=== PATIENT | female | born 1960 | race Caucasian/White ===

== ENCOUNTER 2020-08-12 22:40 | Emergency (ER) | payer OTHER, SELFPAY ==
--- NOTE | 2020-08-12 23:04 | ED.HEATRA ---
HPI - Head Injury General Chief complaint: Wound/Laceration Stated complaint: head injury Time Seen by Provider: 08/12/20 23:25 Source: patient Mode of arrival: ambulatory Limitations: no limitations History of Present Illness HPI Narrative: 60-year-old woman comes in today complaining of a laceration on her occipital scalp that occurred after slipping on the ice yesterday afternoon. Patient states she also injured her left elbow and left hip. She has full range of motion of both. She has had intermittent headache and pain at the wound site but no vomiting, visual changes, difficulty walking, or confusion. Patient denies alcohol or drug use around the time of the injury. She does not recall her last tetanus shot. Complaint: head injury Onset (ago): hour(s) (30) Mechanism of Injury: fall Place: outdoors Loss of Consciousness: unsure Location of injury: occipital Severity: moderate Quality: sharp Radiation: none Other Injuries: upper extremity and lower extremity Associated symptoms: denies other symptoms Related Data Home Medications Medication Instructions Recorded Confirmed amlodipine 10 mg PO DAILY 08/12/20 08/12/20 atenolol 50 mg PO DAILY 08/12/20 08/12/20 ropinirole 20 mg PO BID 08/12/20 08/12/20 rosuvastatin 20 mg PO DAILY 08/12/20 08/12/20 Allergies Allergy/AdvReac Type Severity Reaction Status Date / Time No Known Allergies Allergy Verified 08/12/20 23:25 Review of Systems Eyes: Eyes: Denies change in vision and Denies photophobia ENT: Denies dysphagia Cardiovascular: Cardiovascular: Denies chest pain and Denies radiating jaw, neck or arm pain Respiratory: Respiratory: Denies cough and Denies dyspnea Gastrointestinal: Gastrointestinal: Denies abdominal pain, Denies nausea and Denies vomiting Genitourinary: Genitourinary: Denies hematuria, Denies nocturia and Denies dysuria Musculoskeletal: Musculoskeletal: Denies back pain, Denies arthralgias and Denies joint swelling Integumentary/Breasts: Skin/Breast: Denies pruritus, Denies erythema and Denies rash Neurologic: Denies vertigo, Denies dizziness and Denies syncope Hematologic/Lymphatic: Hematologic/Lymphatic: Denies easy bleeding and Denies easy bruising PMFSH Past Medical History Medical History (Updated 08/12/20 @ 23:50 by Gabino Lundberg MD) Hyperlipidemia Hypertension RLS (restless legs syndrome) Surgical History Surgical History (Updated 08/12/20 @ 23:46 by Gabino Lundberg MD) H/O cervical spine surgery H/O hand surgery Social History Social History (Updated 08/12/20 @ 23:50 by Gabino Lundberg MD) Smoking status: Current some day smoker Alcohol intake: current Substance use: current Substance use type: marijuana Living arrangements: alone Exam Const: General: healthy appearing and alert Orientation/consciousness: patient oriented x3 Limitations: no limitations Other: mild acute distress. HENMT: Head: normal to inspection Ears: external ears normal, TM's normal bilaterally and EAC's normal General nose exam: Normal nares present Face and sinus: normal facial exam Mouth: Yes moist mucous membranes Throat: posterior oropharynx normal Other: Irregular 3 cm laceration on the occipital scalp. Inferior portion of the laceration is full thickness and approximately 1.5 cm long. it is caked with dried blood. Eyes: Conjunctivae: conjunctivae normal Pupils: Equal, round and reactive pupils present EOM: EOMs intact bilaterally Neck: Neck: normal visual inspection and no lymphadenopathy Resp: Effort & Inspection: normal respiratory effort and not labored Auscultation: clear to auscultation bilaterally, no rales, no rhonchi and no wheezes Cardio: Rate: regular rate Rhythm: regular rhythm Heart sounds: no murmurs Skin: General skin exam: normal color, no jaundice and no pallor Rashes: no rashes Neuro: General: patient oriented x3, moves all extremities and no focal motor deficits Crani
[2020-08-12 23:10] VITALS: BP 146/82; PULSE 70; RESP 16; TEMP 36.3; O2SAT 96
[2020-08-13] MEDS: TETANUS,DIPHTHERIA,AC PERTUSSIS ADULT 0.5 ML (ADACEL) IM (00:11)
[2020-08-13] MEDS: IBUPROFEN 600 MG TABLET PO (00:12)
[2020-08-13 00:21] VITALS: BP 140/75; PULSE 80; RESP 18; TEMP 36.3; O2SAT 97
== END 2020-08-13 00:24 | disposition home or self-care (01) ==
PROVIDERS: Emergency Provider Emergency Medicine
DX: S50.02XA Contusion of left elbow, initial encounter (principal); S30.0XXA Contusion of lower back and pelvis, initial encounter; S01.01XA Laceration without foreign body of scalp, initial encounter; S09.90XA Unspecified injury of head, initial encounter; W00.0XXA Fall on same level due to ice and snow, initial encounter
CPT/HCPCS: 12002; 90471; 90715; 99282; A9270